=== PATIENT | female | born 1960 | race American Indian/Alaskan Native ===

== ENCOUNTER 2016-12-30 20:08 | Emergency (ER) | payer MEDICAID ==
[2016-12-31] MEDS ORDERED: MOTRIN PO ONE ×2 (04:50→04:55)
--- NOTE | 2016-12-31 07:43 | Emergency Department Report ---
ED Lower Extremity HPI - General Chief Complaint: Extremity Injury, Lower Stated Complaint: RT ANKLE PAIN Time Seen by Provider: 12/31/16 07:36 Source: patient Mode of arrival: Wheelchair Limitations: No Limitations - History of Present Illness Initial Comments: Pt reports R foot pain since jumping down out of truck on Monday. Denies numbness or other injuries. Complaint: foot injury -: Sudden, week(s) (1) Injury: Foot: Right Type of Injury: blunt Place: work Severity: moderate Severity scale (0 -10): 7 Improves With: nothing Worsens With: weight bearing Context: jumping Associated Symptoms: swelling, able to partially bear weight. denies: numbness , tingling - Related Data Previous Rx's Medication Instructions Recorded Last Taken Type Ibuprofen [Motrin] 800 mg PO Q8HR PRN #20 tablet 12/31/16 Unknown Rx Allergies Allergy/AdvReac Type Severity Reaction Status Date / Time No Known Allergies Allergy Unverified 12/30/16 20:58 ED Review of Systems ROS: Stated complaint: RT ANKLE PAIN Other details as noted in HPI Comment: All other systems reviewed and negative Constitutional: denies: chills, fever Eyes: denies: eye pain, eye discharge, vision change ENT: denies: ear pain, throat pain Respiratory: denies: cough, shortness of breath, wheezing Cardiovascular: denies: chest pain, palpitations Endocrine: no symptoms reported Gastrointestinal: denies: abdominal pain, nausea, diarrhea Genitourinary: denies: urgency, dysuria, discharge Musculoskeletal: arthralgia. denies: back pain, joint swelling Skin: denies: rash, lesions Neurological: denies: headache, weakness, paresthesias Psychiatric: denies: anxiety, depression Hematological/Lymphatic: denies: easy bleeding, easy bruising ED Past Medical Hx - Past Medical History Previous Medical History?: No - Surgical History Past Surgical History?: No - Social History Smoking Status: Current Some Day Smoker Substance Use Type: None - Medications Home Medications: Home Medications Medication Instructions Recorded Confirmed Last Taken Type Ibuprofen [Motrin] 800 mg PO Q8HR PRN #20 tablet 12/31/16 Unknown Rx ED Physical Exam - General Limitations: No Limitations General appearance: alert, in no apparent distress - Head Head exam: Present: atraumatic, normocephalic - Eye Eye exam: Present: normal appearance - ENT ENT exam: Present: mucous membranes moist - Neck Neck exam: Present: normal inspection - Respiratory Respiratory exam: Present: normal lung sounds bilaterally. Absent: respiratory distress - Cardiovascular Cardiovascular Exam: Present: regular rate, normal rhythm. Absent: systolic murmur, diastolic murmur, rubs, gallop - GI/Abdominal GI/Abdominal exam: Present: soft, normal bowel sounds - Extremities Exam Extremities exam: Present: other (swellnig to R foot noted with tenderness. CMS intact. R ankle normal. Achilles normal. ) - Back Exam Back exam: Present: normal inspection - Neurological Exam Neurological exam: Present: alert, oriented X3 - Psychiatric Psychiatric exam: Present: normal affect, normal mood - Skin Skin exam: Present: warm, dry, intact, normal color. Absent: rash ED Course Vital Signs 12/30/16 12/31/16 12/31/16 20:55 05:00 06:00 Temperature 99.3 F Pulse Rate 100 H Respiratory 18 18 18 Rate Blood Pressure 145/78 O2 Sat by Pulse 100 Oximetry 12/31/16 06:09 Temperature 98.5 F Pulse Rate 85 Respiratory 18 Rate Blood Pressure 146/83 O2 Sat by Pulse 99 Oximetry - Reevaluation(s) Reevaluation #1: 12/31/16 08:19 Pt in NAD and stable for d/c. ED Lower Extremity MDM - Radiology Data Radiology results: image reviewed interpreted by me: I see no evidence for fracture. - Medical Decision Making Pt with sprain of foot. Will give NSAID, post op shoe and have her follow up. - Differential Diagnosis contusion, sprain, fx Critical care attestation.: If time is entered above; I have spent that time in minutes in the direct care of this critically ill patient, excluding procedure time. ED Disposition Clinical Impression: Right foot sprain Qualifiers: Encounter type: initial encounter Qualified Code(s): S93.601A - Unspecified sprain of right foot, initial encounter Disposition: TO HOME OR SELFCARE Is pt being admited?: No Condition: Good Instructions: Foot Sprain (ED) Prescriptions: Ibuprofen [Motrin] 800 mg PO Q8HR PRN #20 tablet PRN Reason: Pain Referrals: PRIMARY CARE, [Primary Care Provider] - 3-5 Days TABITHA YI MD [Staff Physician] - 3-5 Days Time of Disposition: 08:20
[2016-12-31 08:43] VITALS: BP 154/80
--- NOTE | 2016-12-31 10:02 | XRay Report ---
FINAL REPORT EXAM: XR FOOT 3 RT HISTORY: r foot pain TECHNIQUE: 3 views of the right foot. PRIORS: None FINDINGS: Moderate sized plantar spur noted. No acute bone destruction. No fracture or dislocation seen. Joint spaces are maintained. IMPRESSION: 1. No acute finding.
--- NOTE | 2016-12-31 10:43 | XRay Report ---
RIGHT ANKLE 2 VIEWS: 12/30/16 20:08:00 CLINICAL: Trauma five days ago. Pain and swelling. FINDINGS: The ankle mortise is intact.No fracture or dislocation. Moderate medial and lateral soft tissue swelling. Plantar calcaneal spur. IMPRESSION: Soft tissue injury. Plantar enthesopathy.
== END 2016-12-31 08:44 | disposition home or self-care (01) ==
LOC: ED 20:08
DX: S93.601A Unspecified sprain of right foot, initial encounter (principal); F17.210 Nicotine dependence, cigarettes, uncomplicated; W17.89XA Other fall from one level to another, initial encounter; Y93.39 Activity, other involving climbing, rappelling and jumping off; Y92.89 Other specified places as the place of occurrence of the external cause; Y99.8 Other external cause status
CPT/HCPCS: 99284